=== PATIENT | female | born 1965 | race Caucasian/White ===

== ENCOUNTER 2017-09-22 06:34 | Observation (INO) | payer OTHER ==
[~2017-09-22] VITALS: Ht 165.1 cm; Wt 50.7 kg
[2017-09-22] MEDS ORDERED: METOPROLOL TARTRATE 25 MG TAB PO PRN (07:30)
[2017-09-22] MEDS ORDERED: CHLORHEXIDINE GLUCONATE 2 % 1 PACK (2 CLOTHS) TOPICAL PRN (07:30)
[2017-09-22] MEDS ORDERED: ceFAZolin 2 GM/DEX PREMIX 50 ML IV SCH (07:30)
[2017-09-22] MEDS ORDERED: ACETAMINOPHEN 1000 MG/100 ML 100 ML IV ONE ×2 (07:30→12:57)
[2017-09-22] MEDS ORDERED: POVIDONE IODINE 5% (ANTISEPSIS KIT) 4 APPLICATIONS EACH NARE PRN (07:30)
[2017-09-22] MEDS ORDERED: LACTATED RINGER'S 1000 ML IV PRN (07:30)
[2017-09-22] MEDS ORDERED: SODIUM CHLORID 0.9% 500 ML IV PRN (07:30)
[2017-09-22 07:47] LABS: AUTOMATED NEUTROPHIL # 1.8 TH/MM3 (1.8-7.7); BASOPHIL % 0.8 % (0.0-2.0); EOSINOPHIL # 0.2 TH/MM3 (0-0.4); EOSINOPHIL % 4.6 % (0.0-4.0); HEMATOCRIT 35.6 % (35.0-46.0); HEMOGLOBIN 12.3 GM/DL (11.6-15.3); LYMPH % 35.6 % (9.0-44.0); LYMPHOCYTE # 1.3 TH/MM3 (1.0-4.8); MEAN CELL VOLUME 93.3 FL (80.0-100.0); MEAN CORPUSCULAR HEMOGLOBIN 32.3 PG (27.0-34.0); MEAN CORPUSCULAR HGB CONC 34.7 % (32.0-36.0); MEAN PLATELET VOLUME 7.4 FL (7.0-11.0); MONO % 8.9 % (0.0-8.0); MONOCYTE # 0.3 TH/MM3 (0-0.9); NEUT % 50.1 % (16.0-70.0); PLATELET COUNT 188 TH/MM3 (150-450); RED BLOOD COUNT 3.82 MIL/MM3 (4.00-5.30); RED CELL DISTRIBUTION WIDTH 12.3 % (11.6-17.2); WHITE BLOOD COUNT 3.6 TH/MM3 (4.0-11.0)
[2017-09-22] MEDS ORDERED: BUPIVACAINE/EPINEPHRINE 0.5% PF 30 ML VIAL ONE (11:12)
[2017-09-22] MEDS ORDERED: GENTAMICIN SULFATE 80 MG/2 ML VIAL ONE (11:12)
[2017-09-22] MEDS ORDERED: HEPARIN SODIUM - IV 10,000 UNITS/10 ML VIAL ONE (11:12)
[2017-09-22] MEDS ORDERED: BACITRACIN TOP OINT 15 GM TUBE ONE (11:12)
[2017-09-22] MEDS ORDERED: LIDOCAINE 1%/EPINEPHrine 1:100,000 SOLN 30 ML VIAL ONE (11:16)
--- NOTE | 2017-09-22 11:40 | RADRPT ---
EXAM DATE/TIME: 09/22/2017 08:26 [facility] COMPARISON: No previous studies available for comparison. INDICATIONS : Breast mass. MEDICAL HISTORY : Carcinoma, breast. SURGICAL HISTORY : Right elbow surgery. ENCOUNTER: Initial ACUITY: One month PAIN SCORE: 0/10 LOCATION: Left upper inner breast. AREA EVALUATED: Left breast, upper quadrant; at 10 o'clock Radiopharmaceutical dose: 1.0 Tc99m [place] colloid FINDINGS: Breast ultrasound was performed prior to lymphoscintigraphy. Subcutaneous and subdermal injections w ere performed in close proximity to the biopsy proven left breast carcinoma. Images were obtained to confirm [place] node uptake. CONCLUSION: Successful ultrasound-guided lymphoscintigraphy injections as described above. Fredy Rayo MD on September 22, 2017 at 11:35 Board Certified Radiologist. This report was verified electronically.
[2017-09-22] MEDS ORDERED: ceFAZolin INJ 1,000 MG VIAL IV ONE ×3 (12:00→17:58)
[2017-09-22] MEDS ORDERED: PROPOFOL 200 MG/20 ML AMP IV ONE ×2 (12:00)
[2017-09-22] MEDS ORDERED: PHENYLEPH/NS 1000 MCG/10 ML SYR IV ONE ×2 (12:00)
[2017-09-22] MEDS ORDERED: ROCURONIUM INJ 50 MG/5 ML SYRINGE IV PUSH ONE ×2 (12:00)
[2017-09-22] MEDS ORDERED: ISOSULFAN BLUE 50 MG/5 ML VIAL SQ ONE (12:00)
[2017-09-22] MEDS ORDERED: ePHEDrine/NS 25 MG/5 ML SYRINGE IV ONE ×2 (12:00)
[2017-09-22] MEDS ORDERED: GLYCOPYRROLATE 1 MG/5 ML SYRINGE IV PUSH ONE ×2 (12:00)
[2017-09-22] MEDS ORDERED: NEOSTIGMINE 5 MG/5 ML SYRINGE IV PUSH ONE ×2 (12:00)
[2017-09-22] MEDS ORDERED: ONDANSETRON HCL 4 MG/2 ML VIAL IV ONE ×2 (12:00)
[2017-09-22] MEDS ORDERED: DEXAMETHASONE SOD PHOS 4 MG/ML VIAL IV ONE ×2 (12:00)
[2017-09-22] MEDS ORDERED: LIDOCAINE HCL 1% PF 5 ML SYRINGE OTHER ONE ×2 (12:00)
[2017-09-22] MEDS ORDERED: LACTATED RINGER'S 1000 ML INJ 2,000 ML IV ONE ×2 (12:00)
--- NOTE | 2017-09-22 12:30 | RADRPT ---
EXAM DATE/TIME: 09/22/2017 08:29 [facility] COMPARISON: US BREAST LYMPHO INJ LEFT, September 22, 2017, 8:26. INDICATIONS : Left breast cancer. DOSE: 1 mCi Tc99m Sulfur Colloid INJECTION SITE: Left Breast IMAGING: SPECT/CT imaging with fusion was performed. RADIATION DOSE: 2.34 CTDIvol (mGy) MEDICAL HISTORY : Carcinoma, breast. SURGICAL HISTORY : Right elbow. ENCOUNTER: Initial ACUITY: 1 day PAIN SCALE: 0/10 LOCATION: Left Breast. TECHNIQUE: Injection(s) of sulfur colloid was performed under sonographic guidance. Static imaging was obtained .. FINDINGS: AP and lateral views were performed and demonstrate positive sentinel node uptake in the left axilla which was marked for resection. CONCLUSION: Positive sentinel node uptake within left axilla which was marked for resection. Fredy Rayo MD on September 22, 2017 at 12:21 Board Certified Radiologist. This report was verified electronically.
[2017-09-22] MEDS ORDERED: KETOROLAC TROMETHAMINE 30 MG/ML (IVP) VIAL IVP PRN (15:15)
[2017-09-22] MEDS ORDERED: CYCLOBENZAPRINE HCL 10 MG TAB PO PRN (15:15)
[2017-09-22] MEDS ORDERED: ACETAMINOPHEN/HYDROcodone 325 MG/5 MG TAB PO PRN ×2 (15:15)
[2017-09-22] MEDS ORDERED: Post-op Orders (for Pharmacy) XX ONE (15:15)
[2017-09-22] MEDS ORDERED: HYDR-3288 PO (15:17)
[2017-09-22] MEDS ORDERED: DIAZ2 PO (15:17)
[2017-09-22] MEDS ORDERED: CYCL5TAB PO (15:19)
--- NOTE | 2017-09-22 15:59 | MP ---
cc: Darrell Guzman MD,Imelda Marrero MD, MD,Cody Hurley MD DATE OF OPERATION: 09/22/2017 PREOPERATIVE DIAGNOSIS: Left-sided breast cancer, desirous of bilateral mastectomy. POSTOPERATIVE DIAGNOSIS: Left-sided breast cancer, desirous of bilateral mastectomy. PROCEDURE PERFORMED: 1. Injection of Lymphazurin blue dye for lymphatic mapping to the left axillary region. 2. Prophylactic right mastectomy. 3. Left mastectomy with identification of 4 sentinel nodes by lymphatic mapping , three which were blue and hot and the fourth one was blue only. ANESTHESIA: General. SURGEON: Darrell Guzman MD PLASTIC SURGEON INVOLVED IN THE RECONSTRUCTION: Dr. Cody Castle. ANESTHESIA: General. INDICATIONS: This is a pleasant 52-year-old female who has a strong family history of breast cancer. She was found to have a lump in the left breast. 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 Plans are made for bilateral mastectomy with immediate reconstruction. PROCEDURE: The patient is taken to the operating room and placed in the supine position. After anesthesia, a timeout is done. We inject 6 mL of Lymphazurin blue dye in the left breast at the tumor site at about the 12 o'clock position. A hot count can be seen in the left axillary region from the technetium-99 injection done earlier. We then prepped with Betadine both breasts and chest. We first directed our attention to the right breast. Elliptical incision is made around the nipple. Superior and inferior flaps were then created using electrocautery device. We dissect up to the clavicle, down to the muscles of the abdomen, medially from the sternum, down to the pectoralis muscle and the breast tissue is elevated off the pectoralis muscle, into the axillary tail and the axillary tail is removed. The stitch is placed at the 12 o'clock position for orientation for pathology. We then irrigate and a wet lap sponge is placed in the space. We then direct our attention to the left side. A similar elliptical incision is made slightly larger because of the tumor. We take superior flaps up to the clavicle, inferiorly to the muscles of the abdomen and medial to the sternum. We then elevate the breast tissue off the pectoralis muscle with the pectoralis fascia, up into the axillary region and axillary tail of the breast and this is all removed. We marked it with a stitch at the 12 o'clock position and this is labeled as left breast with the tumor. We were then are able to map out 3 clusters of lymph nodes, the first one which is more superficial with an ex vivo count of 3213; it is stained darkly blue. A second cluster of lymph nodes maybe 2, had an ex vivo count of 2739 and a third node that looked like a single node with an ex vivo count of 304. This was the deeper one. There was a fourth sentinel node that was somewhat lateral and did not have any count in it, but it did have blue dye. This was labeled as a fourth sentinel node. No other lymphadenopathy is noted. The area was then irrigated. Hemostasis is assured. Then, a wet sponge is then placed in here and in the dissection and that is when Dr. Cody Castle came into the room to do the reconstruction. Please see his operative note for reconstruction of the breast. I discussed the intraoperative findings with the father at the completion of my procedure. Estimated blood loss for this portion of the procedure was 30 mL. Darrell Guzman MD JTERRANCE/REJI , 03:29 PM , 03:58 PM [facility]
--- NOTE | 2017-09-22 16:17 | EKG ---
Date Performed: 09/22/2017 Time Performed: 07:04:39 PTAGE: 52 years EKG: Sinus rhythm NORMAL ECG NO PREVIOUS TRACING DOCTOR: Chase Dacosta Interpretating Date/Time 09/22/2017 16:14:53
[2017-09-22] MEDS ORDERED: METHYLENE BLUE 10 MG/ML VIAL OTHER ONE (16:30)
[2017-09-22] MEDS ORDERED: PILL SPLITTER OTHER PRN (17:30)
[2017-09-22] MEDS ORDERED: ACETAMINOPHEN 1000 MG/100 ML 100 ML IV SCH (18:00)
[2017-09-22] MEDS ORDERED: MUPIROCIN 2% OINT 22 GM TUBE ONE (18:15)
[2017-09-22] MEDS ORDERED: DO NOT ADM ANY ANTICOAGULANT DRUGS PRN (19:23)
[2017-09-22] MEDS ORDERED: *morphine SULFATE 4 MG/ML PERIprocedure ONLY ONE (19:28)
[2017-09-22] MEDS ORDERED: LORazepam 2 MG/ML VIAL ONE (19:33)
[2017-09-22 20:00] VITALS: BP 112/68; PULSE 93; RESP 17; TEMP 98; O2SAT 95
[2017-09-22] MEDS: LACTATED RINGER'S 1000 ML INJ 1,000 ML IV SCH (20:00)
[2017-09-22] MEDS ORDERED: MORPHINE SULFATE 2 MG/ML SYRINGE IV PRN (20:15)
[2017-09-22] MEDS ORDERED: LORazepam 2 MG/ML VIAL IV ONE (20:15)
[2017-09-22] MEDS: ACETAMINOPHEN 1000 MG/100 ML 100 ML IV SCH (21:00)
[2017-09-22 21:30] VITALS: BP 112/68; PULSE 93; RESP 17; TEMP 98; O2SAT 95
[2017-09-23] VITALS: BP 108/61; PULSE 88; RESP 17; TEMP 97.5; O2SAT 98
[2017-09-23] MEDS: LACTATED RINGER'S 1000 ML INJ 1,000 ML IV SCH ×2 (01:12→09:25)
[2017-09-23] MEDS: ACETAMINOPHEN 1000 MG/100 ML 100 ML IV SCH ×4 (03:30→20:48)
[2017-09-23] MEDS: ONDANSETRON HCL 4 MG/2 ML VIAL IV PUSH PRN ×3 (03:38→14:28)
[2017-09-23 07:57] VITALS: BP 111/63; PULSE 83; RESP 18; TEMP 98
[2017-09-23] MEDS: DIAZEPAM 2 MG TAB PO PRN (10:25)
[2017-09-23 12:00] VITALS: BP 109/58; PULSE 66; RESP 16; TEMP 98; O2SAT 100
[2017-09-23] MEDS ORDERED: oxyCODONE/ACETAMINOPHEN 5 MG/325 MG TAB PO PRN (13:45)
[2017-09-23] MEDS: oxyCODONE/ACETAMINOPHEN 5 MG/325 MG TAB PO PRN (14:27)
[2017-09-23] MEDS ORDERED: OXYC1TAB63 PO (14:58)
[2017-09-23] MEDS ORDERED: ZOFR4TAB PO (14:58)
--- NOTE | 2017-09-23 15:13 | HHI.FF ---
Face to Face Verification Diagnosis: (1) S/P mastectomy, bilateral Home Health Nursing Order: Wound care and dressing changes Nursing assessment with vital signs Instructions: Routine RAI care ---bilateral I have seen patient Samantha Santa on 09/23/17. My clinical findings support the need for the requested home health care services because: Limited ability to care for self High risk of falls I certify that my clinical findings support that this patient is homebound because: Post-op weakness Alisa Whittington SPRAYER HAND/Counter Weigher SPRAYER HAND Sep 23, 2017 15:13
--- NOTE | 2017-09-23 15:18 | HHI.PR ---
cc: Darrell Barcenas MD Subjective Subjective Notes DAILY PROGRESS NOTE FOR SURGICAL ATTENDING, DR. DARRELL BARECNAS Resting in bed Nauseous Objective Vitals/I&O Vital Signs Date Time Temp Pulse Resp B/P (MAP) Pulse Ox O2 Delivery O2 Flow Rate FiO2 09/23/17 12:00 98.0 66 16 109/58 (75) 100 09/22/17 21:00 Nasal Cannula 2 Cardiovascular: Regular Lungs: Clear Abdomen: Non-distended, Non-tender Extremities: No edema Narrative Exam Bilateral mastectomy incisions c/d/i; RAI x4 with serosanguineous drainage A/P Problem List: (1) Postoperative nausea ICD Codes: R11.0 - Nausea; Z98.890 - Other specified postprocedural states Status: Acute (2) Breast cancer, left breast ICD Codes: C50.912 - Malignant neoplasm of unspecified site of left female breast Status: Acute (3) Status post mastectomy ICD Codes: Z90.10 - Acquired absence of unspecified breast and nipple Status: Acute (4) S/P mastectomy, bilateral ICD Codes: Z90.13 - Acquired absence of bilateral breasts and nipples Status: Acute (5) S/P breast reconstruction, bilateral ICD Codes: Z98.890 - Other specified postprocedural states Status: Acute Assessment and Plan 52 year old female POD1 bilateral mastectomy with reconstruction -Pain control---- changed to Percocet -Zofran PRN; added scopolamine patch -Regular diet -OOB and mobilize as tolerated - consult for HHC -Likely DC tomorrow -Follow up TuesdaySeptember 27 at 2PM Attending Statement NOTE FOR SURGICAL ATTENDING, DR. DARRELL BARCENAS Patient still having some pain Patient still having postoperative nausea Anticipate possible discharge tomorrow I agree with above assessment and plan. The exam, history, and the medical decision-making described in the above note were completed with the assistance of the mid-level provider. I reviewed and agree with the findings presented. I attest that I had a [id number] encounter with the patient on the same day, and personally performed and documented my assessment and findings in the medical record. The following services were provided during this hospital visit: Chart data review, vital sign assessments/reviewing monitor data Review of consultations notes if present. Medication orders/review and/or management Ordering and/or reviewing lab tests Ordering and/or interpreting/reviewing x-rays and/or diagnostic studies Care of the patient and discussion of the patient with the care team Documentation time To help prompt me to consider important information that might be impacting today's encounter and assessment, Information from prior notes written by myself or my colleagues may have been "brought forward/copy and pasted" into today's note. Problem Qualifiers (1) Breast cancer, left breast: Qualified Codes: C50.812 - Malignant neoplasm of overlapping sites of left female breast; Z17.1 - Estrogen receptor negative status [ER-] (2) Status post mastectomy: Qualified Codes: Z90.13 - Acquired absence of bilateral breasts and nipples Alisa Whittington/First Penny BAGLEY Sep 23, 2017 15:18 Darrell Barcenas MD Sep 23, 2017 16:31
[2017-09-23 16:00] VITALS: BP 129/69; PULSE 66; RESP 20; TEMP 98.8; O2SAT 98
[2017-09-23] MEDS ORDERED: SCOPOLAMINE 1.5 MG PATCH T-DERMAL SCH (17:00)
--- NOTE | 2017-09-23 18:27 | HHI.PR ---
Subjective Remarks Patient with some mild nausea and difficulty in urinating overnight. Straight cathed 1. Tolerating limited p.o. Objective Vital Signs Date Time Temp Pulse Resp B/P (MAP) Pulse Ox O2 Delivery O2 Flow Rate FiO2 09/23/17 16:00 98.8 66 20 129/69 (89) 98 09/23/17 12:00 98.0 66 16 109/58 (75) 100 09/23/17 07:57 98.0 83 18 111/63 (79) 09/23/17 00:00 97.5 88 17 108/61 (77) 98 09/22/17 21:30 98.0 93 17 112/68 (83) 95 09/22/17 21:00 90 16 121/69 (86) 100 Nasal Cannula 2 09/22/17 20:45 87 16 122/67 (85) 100 Nasal Cannula 2 09/22/17 20:30 86 16 123/69 (87) 100 Nasal Cannula 2 09/22/17 20:15 84 16 125/70 (88) 100 Nasal Cannula 2 09/22/17 20:00 86 16 124/66 (85) 100 Nasal Cannula 2 09/22/17 19:45 83 16 116/63 (80) 100 Nasal Cannula 2 09/22/17 19:23 98.8 83 16 123/65 (84) 100 Nasal Cannula 2 I/O 09/22/17 09/22/17 09/22/17 09/23/17 09/23/17 09/23/17 07:00 15:00 23:00 07:00 15:00 23:00 Intake Total 2100 ml 340 ml 1200 ml Output Total 160 ml 240 ml 610 ml Balance 1940 ml 100 ml -610 ml 1200 ml Intake Oral 240 ml 1200 ml IV Total 100 ml 100 ml Other 2000 ml Output Urine Total 130 ml Emesis 600 ml Drainage Total 80 ml 110 ml 10 ml Estimated Blood Loss 80 ml Bladder Scan Volume Amount 670 ml 540 ml # Voids 1 4 # Bowel Movements 0 Result Diagram: 09/22/17 0730 Objective Remarks Bilateral breast dressings in place Skin flaps appear viable JPs with serosanguineous thin output Less than 70 per side Appropriately tender Assessment and Plan Problem List: (1) S/P breast reconstruction, bilateral ICD Codes: Z98.890 - Other specified postprocedural states Status: Acute (2) S/P mastectomy, bilateral ICD Codes: Z90.13 - Acquired absence of bilateral breasts and nipples Status: Acute Assessment and Plan 52-year-old female postoperative day 1 from bilateral mastectomy, left sentinel node, and bilateral breast reconstruction with tissue expanders and AlloDerm Complaining of nausea, pain, and difficulty urinating Patient to attempt urination as well as ambulation May need additional day before discharge Cody Castle MD Sep 23, 2017 18:27
[2017-09-23 20:00] VITALS: BP 133/77; PULSE 72; RESP 17; TEMP 98.2; O2SAT 99
[2017-09-24] VITALS: BP 121/76; PULSE 76; RESP 17; TEMP 98; O2SAT 92
[2017-09-24 08:00] VITALS: BP 123/73; PULSE 65; RESP 18; TEMP 98; O2SAT 99
[2017-09-24] MEDS: DIAZEPAM 2 MG TAB PO PRN (09:08)
--- NOTE | 2017-09-24 09:40 | HHI.PR ---
Subjective Subjective Notes pain better, nausea better, no fever Objective Vitals/I&O Vital Signs Date Time Temp Pulse Resp B/P (MAP) Pulse Ox O2 Delivery O2 Flow Rate FiO2 09/24/17 00:00 98.0 76 17 121/76 (91) 92 09/22/17 21:00 Nasal Cannula 2 Lungs: Clear, Other (incisions with dressing c.d.i, richie serosang x4) Abdomen: Non-distended A/P Problem List: (1) Postoperative nausea ICD Codes: R11.0 - Nausea; Z98.890 - Other specified postprocedural states Status: Acute (2) Breast cancer, left breast ICD Codes: C50.912 - Malignant neoplasm of unspecified site of left female breast Status: Acute (3) Status post mastectomy ICD Codes: Z90.10 - Acquired absence of unspecified breast and nipple Status: Acute (4) S/P mastectomy, bilateral ICD Codes: Z90.13 - Acquired absence of bilateral breasts and nipples Status: Acute (5) S/P breast reconstruction, bilateral ICD Codes: Z98.890 - Other specified postprocedural states Status: Acute Assessment and Plan 52 year old female POD2 bilateral mastectomy with reconstruction -Pain control---Percocet -Zofran PRN; added scopolamine patch -Regular diet -OOB and mobilize as tolerated -CM consult for HHC -Likely DC today -Follow up TuesdaySeptember 27 at 2PM Problem Qualifiers (1) Breast cancer, left breast: Qualified Codes: C50.812 - Malignant neoplasm of overlapping sites of left female breast; Z17.1 - Estrogen receptor negative status [ER-] (2) Status post mastectomy: Qualified Codes: Z90.13 - Acquired absence of bilateral breasts and nipples Davian Jackman MD Sep 24, 2017 09:40
[2017-09-24 12:00] VITALS: BP 117/64; PULSE 65; RESP 19; TEMP 98.4; O2SAT 96
[2017-09-24] MEDS ORDERED: CEPH-460 PO (12:14)
[2017-09-24] MEDS: oxyCODONE/ACETAMINOPHEN 5 MG/325 MG TAB PO PRN (12:53)
--- NOTE | 2017-09-25 19:11 | PD.OP ---
Operative Report Date of Surgery: Sep 22, 2017 Preoperative Diagnosis: (1) Breast cancer, left breast Postoperative Diagnosis: (1) Breast cancer, left breast Procedure: Bilateral breast reconstruction with tissue expanders and acellular dermal matrix ([id number]) Anesthesia: General Surgeon: Cody Castle Cnc Mill Set Up Operator(s): . Operation and Findings: 52F w/ a strong family history of breast cancer, who was found to have a left breast high-grade ER negative ductal carcinoma in situ. After extensive discussion with Dr. Guzman and myself, the patient elected to undergo bilateral mastectomy with immediate reconstruction with tissue expanders and acellular dermal matrix. Please see Dr. Guzman's operative report for details regarding the mastectomy and sentinel lymph node biopsy. Following the completion of that portion of the procedure, the patient's care was turned over to myself. Attention was first turned to the right side. The surgical site was copiously irrigated with antibiotic-containing solution. Hemostasis was ensured using Bovie cautery. A pectoralis major muscle flap was raised by dissecting in the central third of the pectoralis major muscle from lateral to medial until the sternal margin was reached. Dissection was then carried inferiorly to the IMF. The costal attachments of the pectoralis major muscle were freed using Bovie cautery. The breast footprint was measured with a ruler. The 12 cm wide expanders were chosen. The vertical height of those expanders was transposed onto the chest wall and marked with a marking pen. The superior aspect of this dissection was then carried until this marking was reached. Hemostasis was again ensured. Betadine soaked laparotomy sponges were placed in the surgical site. Attention was then turned to the left side. A pectoralis major muscle flap was raised in a similar fashion. The 133-MX-12- T tissue expanders which had been soaking in antibiotic irrigation were instilled with 60 mL of normal saline to allow for aspiration of all air bubbles. Attention was then turned back to the right side. The Betadine laparotomy sponge was removed. The surgical site was again copiously irrigated with antibiotic irrigation. Hemostasis was ensured. A 6 x 16 cm rectangle of acellular dermal matrix, which had been soaking in normal saline irrigation for 10 minutes was contoured using the curved aspect of a kidney basin. The acellular dermal matrix was sutured in place to the inferior medial aspect of the IMF using 3-0 PDS. This was then continued inferolaterally in a running fashion along the chest wall until the superolateral aspect of the breast pocket was reached. Hemostasis was again ensured. All gloves were changed. The tissue operations systems specialist was placed in situ. A 19 [place] was placed inferomedial underneath the pectoralis muscle and brought out laterally. The superior aspect of the AlloDerm was sutured to the inferior aspect of the pectoralis major from medially to laterally with 3-0 PDS in a running fashion. A second right 19 [place]vin was then placed inferomedially above the pectoralis muscle and brought out laterally. Both drains were sutured with 2-0 silk. Attention was then turned to the left side which was completed in a similar fashion. The mastectomy site was once more irrigated and checked for hemostasis. It was at this time that the skin flaps were checked for laxity. It was found that although the edges of the skin could be brought into apposition, it was with undue tension. Both expanders were deflated completely. It was only after doing this, that the skin edges were able to be closed without undue tension. Both incisions were tailor tacked in place with surgical huseyin. The deep dermis was closed with interrupted 3-0 Monocryl followed by running 4-0 Monocryl subcuticular. The surgical sites were cleaned. Both mastectomy skin flap sites exhibited good capillary refill. The incisions and drain sites were dressed with mupirocin ointment, Xeroform gauze, 4 x 4 gauze, and large Tegaderms. All 4 drains were placed to bulb suction. The patient was awoken from anesthesia and arrived stable and doing well to the PACU. All needle sponge and instrument counts were correct 2. Cody Castle MD Sep 25, 2017 19:11
== END 2017-09-24 13:25 | disposition home or self-care (01) ==
LOC: HSDC 06:34 → N07A 21:40
PROVIDERS: ADMIT Surgery; ATTEND Surgery
DX: C50.812 Malignant neoplasm of overlapping sites of left female breast (principal); R11.0 Nausea; R39.9 Unspecified symptoms and signs involving the genitourinary system; Z17.1 Estrogen receptor negative status [ER-]
CPT/HCPCS: 00402; 19307; 19357; 76642; 78195; 85025; 88307; 93005; 94150; 96374; A9541; C1789; G0378; J0131; J0690; J1100; J1580; J2060; J2270; J2370; J2405; J2710; J3010; J7120; Q4116; J1644; Q9968